=== PATIENT | female | born 1990 | race Caucasian/White ===

== ENCOUNTER 2018-11-26 09:00 | Inpatient (IN) ==
[2018-11-26] MEDS ORDERED: Ondansetron 4 MG/2 ML VIAL IVP PRN (09:17)
[2018-11-26] MEDS ORDERED: *HR* Nalbuphine 10 MG/ML AMPUL IVP PRN (09:17)
[2018-11-26] MEDS ORDERED: Metoclopramide 10 MG/2 ML VIAL IVP PRN (09:17)
[2018-11-26] MEDS ORDERED: Famotidine 20 MG/2 ML VIAL IVP PRN (09:17)
[2018-11-26] MEDS ORDERED: Naloxone 0.4 MG/ML INJ IVP PRN (09:17)
[2018-11-26] MEDS ORDERED: miSOPROStoL 25 MCG TABLET PO STA (09:19)
[2018-11-26] MEDS ORDERED: Ringers Solution, Lactated 1,000 ML IVC SCH (09:30)
[2018-11-26 12:02] LABS: Basophils % 0.2 %; Eosinophils # 0.5 K/mcL (0.0-0.6); Eosinophils % 3.7 %; Hematocrit 36.4 % (35.3-44.9); Hemoglobin 12.2 g/dL (11.5-15.4); Immature Granulocytes % 1.1 % (0-4); Lymphocytes # 1.5 K/mcL (0.6-4.6); Lymphocytes % 11.7 %; Mean Corpuscular HGB Conc 33.5 g/dL (31.6-35.5); Mean Corpuscular Hemoglobin 31.3 pg (28.0-33.3); Mean Corpuscular Volume 93.3 fL (83.0-100.0); Mean Platelet Volume 8.4 fL (9.4-12.4); Monocytes # 0.8 K/mcL (0.0-1.3); Neutrophils # 9.9 K/mcL (1.6-8.9); Platelet Count 267 K/mcL (140-400); Red Cell Distribution Width 13.9 % (11.5-14.5); Segmented Neutrophils % 77.3 %; White Blood Count 12.8 K/mcL (4.3-11.1)
[2018-11-26 12:10] LABS: Amphetamine Screen,Urine Negative ng/mL (Cutoff=1000); Barbiturate Screen,Urine Negative ng/mL (Cutoff=200); Benzodiazepines Screen,Urine Negative ng/mL (Cutoff=200); Cannabinoid Screen,Urine Negative ng/mL (Cutoff = 50); Cocaine Screen,Urine Negative ng/mL (Cutoff= 300); Opiate Screen,Urine Negative ng/mL (Cutoff=300); Phencyclidine Screen,Urine Negative ng/mL (Cutoff=25)
[2018-11-26] MEDS ORDERED: *HR* FentaNYL (PF) 100 MCG/2 ML VIAL EP ONE (14:30)
[2018-11-26] MEDS ORDERED: Ropivacaine/PF 0.2% 20 ML VIAL EP ONE (14:30)
[2018-11-26] MEDS ORDERED: Oxytocin 20 units/ LR 1000 mL 20 UNIT/1,000 ML BAG IVC SCH (16:45)
[2018-11-26] MEDS ORDERED: *HR* FentaNYL (PF) 100 MCG/2 ML VIAL ONE (18:48)
[2018-11-26] MEDS ORDERED: Ropivacaine/PF 0.2% 20 ML VIAL ONE (18:49)
[2018-11-26] MEDS: Epidural Premix (fent/bupiv) 110 ML EP SCH (19:08)
[2018-11-26] MEDS ORDERED: EPHEDrine 50 MG/ML VIAL ONE (19:30)
[2018-11-27] MEDS: Epidural Premix (fent/bupiv) 110 ML EP SCH (01:17)
[2018-11-27] MEDS ORDERED: *HR* HYDROcodone/Acet 5/325 mg TABLET PO PRN (06:34)
[2018-11-27] MEDS ORDERED: Oxytocin 20 units/ LR 1000 mL 20 UNIT/1,000 ML BAG IVC SCH (06:34)
[2018-11-27] MEDS ORDERED: Acetaminophen 325 MG TABLET PO PRN (06:34)
[2018-11-27] MEDS ORDERED: Lanolin 7 G OINT...G. TP PRN (06:34)
[2018-11-27] MEDS ORDERED: Benzocaine/Menthol 56 GM AEROSOL SPRAY TP PRN (06:34)
[2018-11-27] MEDS: Ibuprofen 600 MG TABLET PO PRN ×2 (07:02→18:39)
[2018-11-27] MEDS ORDERED: Prenatal Vit/FA 1 EACH TABLET PO SCH (09:00)
[2018-11-28 07:49] VITALS: BP 105/64
[2018-11-28] MEDS: Ibuprofen 600 MG TABLET PO PRN (08:18)
== END 2018-11-28 14:20 | disposition home or self-care (01) | DRG 807 ==
LOC: 1NENULAB 09:00 → 1NENUOBS 11-27 06:33
PROVIDERS: ADMIT Advanced Practice Midwife; ATTEND Advanced Practice Midwife